=== PATIENT | male | born 1970 | race Caucasian/White ===

== ENCOUNTER 2020-08-09 15:49 | Emergency (ER) | payer SELFPAY ==
[~2020-08-09] VITALS: Ht 162.6 cm; Wt 65.9 kg
[~2020-08-09 15:49] MED LIST: AUGMENTIN 875-11 TAB PO; FLUTICASONE PRO16 GM NASAL; MUCINEX DM ER1 EAC1 PO; PROTONIX40 MG PO
[2020-08-09 16:03] VITALS: Ht 162.6 cm; Wt 65.9 kg
[2020-08-09] MEDS ORDERED: CEPHALEXIN500 M1 PO (16:30)
[2020-08-09 17:02] VITALS: BP 142/69
== END 2020-08-09 17:04 | disposition home or self-care (01) ==
LOC: D.ER 15:49
DX: K08.89 Other specified disorders of teeth and supporting structures (principal); K04.7 Periapical abscess without sinus; Z72.0 Tobacco use; K21.9 Gastro-esophageal reflux disease without esophagitis

== ENCOUNTER 2020-09-09 16:59 | Emergency (ER) | payer SELFPAY ==
[~2020-09-09] VITALS: Ht 162.6 cm; Wt 61.4 kg
[~2020-09-09 16:59] MED LIST changes: +CEPHALEXIN500 M1 PO
[2020-09-09 17:21] VITALS: Ht 162.6 cm; Wt 61.4 kg
[2020-09-09 18:16] LABS: APTT 29.7 SECONDS (22.8-39.4); INR 1.42 (0.85-1.17); PROTIME 16.1 SECONDS (11.6-15.0)
[2020-09-09 18:20] LABS: CALC OSMOLALITY 278 mosm/kg (275-300); CALCIUM 8.4 mg/dL (8.5-10.1); CARBON DIOXIDE 21.5 mmol/L (21.0-32.0); CHLORIDE - SERUM 104 mmol/L (98-107); CREATININE - SERUM 1.2 mg/dL (0.6-1.3); GLUCOSE 106 mg/dL (74-106); POTASSIUM - SERUM 4.4 mmol/L (3.5-5.1); SODIUM 138 mmol/L (136-145); UREA NITROGEN 22 mg/dL (7-18); eGFR NON AFRICAN AMERICAN 68 mL/min (90-120)
[2020-09-09 18:23] LABS: BASOPHILS 1.3 % (0-2); EOSINOPHILS 2.4 % (0-7); HEMOGLOBIN 10.2 g/dL (13.5-17.5); IMMATURE GRANULOCYTES 0.2 % (0-5); LYMPHOCYTE ABS# 1.52 10x3/uL (1.32-3.57); LYMPHOCYTES 27.9 % (15-50); MCH 27.1 pg (26.0-34.0); MCHC 30.9 g/dL (31.0-37.0); MCV 87.8 fL (80.0-100.0); MEAN PLATELET VOLUME 10.7 fL (7.4-10.4); MONOCYTES 10.7 % (2-11); NEUTROPHIL ABS# 3.13 10x3/uL (1.78-5.38); NEUTROPHILS 57.5 % (40-80); RBC 3.76 10x6/uL (4.20-6.10); RDW 17.2 % (11.5-14.5); WBC 5.4 10x3/uL (4.8-10.8)
[2020-09-09 18:24] LABS: PLATELET COUNT 259 10x3/uL (130-400)
[2020-09-09 18:38] LABS: ALBUMIN 3.2 g/dL (3.4-5.0); ALKALINE PHOSPHATASE 142 U/L (30-120); ALT (SGPT) 66 U/L (10-68); BILIRUBIN - TOTAL 0.58 mg/dL (0.2-1.3); CKMB 1.7 U/L (0.0-3.6); CREATINE KINASE 75 UL (21-232); PROTEIN - SERUM 6.7 g/dL (6.4-8.2); TROPONIN-I < 0.017 ng/mL (0.000-0.060)
[2020-09-09 20:41] VITALS: BP 120/88
== END 2020-09-09 20:42 | disposition home or self-care (01) ==
LOC: D.ER 16:59
PROVIDERS: Emergency Medicine
DX: R06.09 Other forms of dyspnea (principal); R79.89 Other specified abnormal findings of blood chemistry; R07.89 Other chest pain